=== PATIENT | male | born 1985 | race Caucasian/White ===

== ENCOUNTER 2023-06-25 21:57 | Emergency (ER) | payer OTHER ==
[~2023-06-25] VITALS: Ht 188 cm; Wt 99.8 kg
[2023-06-25] MEDS ORDERED: OLME5TAB3 PO (22:16)
[2023-06-25] MEDS ORDERED: LORAZEPAM 0.5 MG TABLET PO ONE (22:30)
[2023-06-25] MEDS ORDERED: CLONIDINE HCL 0.1 MG TABLET PO ONE (22:30)
[2023-06-25] MEDS ORDERED: IV NORMAL SALINE 1000 ML BAG IV ONE ×2 (22:30→23:00)
[2023-06-25 22:32] LABS: BASOPHILS # (AUTO) 0.1 K/UL (0.0-0.2); BASOPHILS % (AUTO) 0.7 % (0.0-2.0); EOSINOPHILS # (AUTO) 0.2 K/uL (0.0-0.7); EOSINOPHILS % (AUTO) 2.3 % (0.0-7.0); HEMATOCRIT 47.1 % (36.7-47.1); HEMOGLOBIN 16.2 g/dL (12.5-16.3); LYMPHOCYTES # (AUTO) 2.4 K/uL (0.8-4.8); LYMPHOCYTES % (AUTO) 32.6 % (20.5-51.5); MEAN CORPUSCULAR HEMOGLOBIN 30.7 uug (23.8-33.4); MEAN CORPUSCULAR HGB CONC 34 g/dL (32.5-36.3); MEAN CORPUSCULAR VOLUME 89.6 fL (73.0-96.2); MONOCYTES # (AUTO) 0.6 K/uL (0.1-1.30); MONOCYTES % (AUTO) 8.6 % (0.0-11.0); NEUTROPHILS % (AUTO) 55.8 % (38.5-71.5); PLATELET COUNT (AUTO) 304 K/uL (152-348); RED BLOOD CELL COUNT(AUTO) 5.26 MIL/uL (4.06-5.63); RED CELL DISTRIBUTION WIDTH 12.8 % (12.1-16.2); WHITE BLOOD COUNT (AUTO) 7.2 K/uL (3.6-10.2)
[2023-06-25 22:51] LABS: DIFFERENTIAL COMMENT 1
[2023-06-25 22:56] LABS: CALCIUM 8.9 mg/dL (8.5-10.1); CARBON DIOXIDE 28 mmol/L (21-32); CHLORIDE 106 mmol/L (98-107); CREATININE 1.5 mg/dL (0.6-1.3); GLUCOSE 127 mg/dL (74-106); POTASSIUM 3.6 mmol/L (3.5-5.1); SODIUM SERUM 144 mmol/L (136-145); UREA NITROGEN, BLOOD 24 mg/dL (7-18)
[2023-06-25] MEDS ORDERED: LORAZEPAM 0.5 MG TABLET ONE (23:00)
[2023-06-25] MEDS ORDERED: CLONIDINE HCL 0.1 MG TABLET ONE (23:00)
[2023-06-25 23:05] LABS: ALANINE AMINOTRANSFERASE 44 U/L (16-63); ALBUMIN 3.8 g/dL (3.4-5.0); ALKALINE PHOSPHATASE 76 U/L (50-136); ASPARTATE AMINOTRANSFERASE 22 U/L (15-37); BILIRUBIN,DIRECT 0.1 mg/dL (0.0-0.2); BILIRUBIN,TOTAL 0.7 mg/dL (0.2-1.0)
[2023-06-26] MEDS ORDERED: CLON0.1T PO (00:33)
[2023-06-26 01:50] VITALS: BP 128/80; TEMP 97.9; O2SAT 99
== END 2023-06-26 01:51 | disposition home or self-care (01) ==
LOC: ER 22:02
DX: I10 Essential (primary) hypertension (principal); R00.2 Palpitations; G43.909 Migraine, unspecified, not intractable, without status migrainosus; Z79.899 Other long term (current) drug therapy; Z88.2 Allergy status to sulfonamides
CPT/HCPCS: 99285; 96360; 71045; 96361; 80076; 80048; 85025; 84484 ×2; 36415 ×2; 93005; J7040 ×2; A4606; A4663